=== PATIENT | female | born 1980 | race African-American/Black ===

== ENCOUNTER 2018-03-30 18:26 | Inpatient (IN) | payer MEDICARE, MEDICAID ==
--- NOTE | 2018-03-30 19:40 | ED Physician Chart ---
ED Chief Complaint/HPI - Patient Information Date Seen:: 03/30/18 Time Seen:: 19:39 Chief Complaint:: Headache and dizziness History of Present Illness:: 37 yo female was brought from [facility] to ER for evaluation of dizziness and headache for 2 days. Patient denied nausea or vomiting. In addition, patient stated that she had progressive multifocal leukoencephalopathy (PML) for 1 year which had caused a host of symptoms and signs including seizure, difficulty speaking, blindness, difficulty ambulating, unsteady gait, lack of balance and urinary incontinence. She is HIV positive. Allergies:: Allergies Allergy/AdvReac Type Severity Reaction Status Date / Time Penicillins [PCN] Allergy Verified 03/30/18 18:37 Sulfa (Sulfonamide Allergy Verified 03/30/18 18:37 Antibiotics) Vitals:: Vital Signs - 8 hr 03/30/18 18:38 Temp 97.6 F HR 84 RR 16 BP 113/79 O2 Sat % 98 ED Review of Systems - Review of Systems General/Constitutional: No fever Skin: No bruising Head: Headache Eyes: No pain ENT: No nasal drainage Neck: No neck pain Cardio Vascular: No chest pain Pulmonary: No SOB GI: No nausea, No vomiting G/U: Other (urinary incontinence ) Musculoskeletal: No bone or joint pain Neurological: Weakness, Dizziness, Other (unsteady gait) ED Past Medical History - Past Medical History Past Medical History: Other (Progressive multifocal leukoencephalopathy, HIV, HPV, anemia) Social History: Non Smoker, No Alcohol, No Drug Use Family Medical History - Family Member Mother History Unknown: Yes ED Physical Exam - Physical Examination General/Constitutional: Awake Head: Atraumatic Other Eyes comments:: blind Skin: No skin lesions ENMT: Nasal exam nl Neck: No nuchal rigidity Respiratory: No Wheeze/Rhonchi/Rales Cardio Vascular: RRR, No murmur, gallop, rubs, NL S1 S2 GI: No tenderness/rebounding/guarding Other Extremities comments:: Unsteady gait, difficulty ambulating Neuro/Psych: Alert/oriented Other Neuro/Psych comments:: Motor strength 4/5 BLE, 5/5 BUE ED Labs/Radiology/EKG Results - Lab Results Results: Laboratory Last Values WBC 4.3 Th/cmm (4.8-10.8) L 03/30/18 19:49 RBC 3.14 Mil/cmm (3.80-5.10) L 03/30/18 19:49 Hgb 11.0 gm/dL (12-16) L 03/30/18 19:49 Hct 33.9 % (41.0-60) L 03/30/18 19:49 MCV 108.0 fl (81-100) H 03/30/18 19:49 MCH 35.2 pg (27.0-31.0) H 03/30/18 19:49 MCHC Differential 32.6 pg (28.0-36.0) 03/30/18 19:49 RDW 12.0 % (11.5-20.0) 03/30/18 19:49 Plt Count 222 Th/cmm (150-400) 03/30/18 19:49 MPV 8.0 fl 03/30/18 19:49 Band Neutrophils % 0 % (0-10) 03/30/18 19:49 Neutrophils (Manual) 40 % (40-80) 03/30/18 19:49 Lymphocytes 52 % (20-50) H 03/30/18 19:49 Monocytes 5 % (2-10) 03/30/18 19:49 Eosinophils 3 % (0-5) 03/30/18 19:49 Basophils 0 % (0-3) 03/30/18 19:49 Sodium 137 mEq/L (136-145) 03/30/18 19:49 Potassium 3.8 mEq/L (3.5-5.1) 03/30/18 19:49 Chloride 105 mEq/L (98-107) 03/30/18 19:49 Carbon Dioxide 26.1 mEq/L (21.0-31.0) 03/30/18 19:49 Anion Gap 9.7 (7.0-16.0) 03/30/18 19:49 BUN 9 mg/dL (7-25) 03/30/18 19:49 Creatinine 0.8 mg/dL (0.6-1.2) 03/30/18 19:49 Est GFR ( Amer) > 60.0 ml/min (>90) 03/30/18 19:49 Est GFR (Non-Af Amer) > 60.0 ml/min 03/30/18 19:49 BUN/Creatinine Ratio 11.3 03/30/18 19:49 Glucose 81 mg/dL (70-105) 03/30/18 19:49 Calcium 9.5 mg/dL (8.6-10.3) 03/30/18 19:49 Total Bilirubin 0.3 mg/dL (0.3-1.0) 03/30/18 19:49 AST 21 U/L (13-39) 03/30/18 19:49 ALT 22 U/L (7-52) 03/30/18 19:49 Alkaline Phosphatase 58 U/L (34-104) 03/30/18 19:49 Total Protein 9.1 gm/dL (6.0-8.3) H 03/30/18 19:49 Albumin 4.1 gm/dL (3.7-5.3) 03/30/18 19:49 Globulin 5.0 gm/dL 03/30/18 19:49 Albumin/Globulin Ratio 0.8 (1.0-1.8) L 03/30/18 19:49 Serum , Qual NEGATIVE (NEGATIVE) 03/30/18 20:11 - Radiology Results Results: CT head without contrast: no acute abnormalities, severe cerebellar atrophy - EKG Interpretations EKG Time:: 22:52 Rate & Rhythm: 73 bmp, sinus rhythm [place]: normal P axis Intervals: normal ED Assessment - Assessment General Assessment: Dizziness Headache Leukopenia Macrocytic anemia HIV Assessment/Comments:: CBC, CMP, UA CXR, EKG CT head without contrast Admit to telemetry for further evaluation and management ED Septic Shock - . Is Septic Shock (SBP<90, OR Lactate>4 mmol\L) present?: No - <6hrs of presentation: Vital Signs: Vital Signs - 8 hr 03/30/18 18:38 Temp 97.6 F HR 84 RR 16 BP 113/79 O2 Sat % 98 ED Reassessment (Disposition) - Reassessment Reassessment Condition:: Unchanged - Patient Disposition Discharge/Transfer:: Acute Care w/in this hosp Admitting Medical Physician:: Jean Trejo ED Discharge Plan - Patient Disposition Admit/Discharge/Transfer: Acute Care w/in this hosp Condition at Disposition: Stable
[2018-03-30 20:07] LABS: HEMATOCRIT 33.9 % (41.0-60); MEAN CORPUSCULAR HEMOGLOBIN 35.2 pg (27.0-31.0); MEAN CORPUSCULAR HGB CONC 32.6 pg (28.0-36.0); PLATELET COUNT 222 Th/cmm (150-400); RED BLOOD COUNT 3.14 Mil/cmm (3.80-5.10); WHITE BLOOD COUNT 4.3 Th/cmm (4.8-10.8)
[2018-03-30 20:14] LABS: ALB/GLOB RATIO 0.8 (1.0-1.8); ALBUMIN 4.1 gm/dL (3.7-5.3); ALKALINE PHOSPHATASE 58 U/L (34-104); ANION GAP 9.7 (7.0-16.0); BILIRUBIN,TOTAL 0.3 mg/dL (0.3-1.0); BUN - UREA NITROGEN 9 mg/dL (7-25); CALCIUM SERUM 9.5 mg/dL (8.6-10.3); CARBON DIOXIDE 26.1 mEq/L (21.0-31.0); CHLORIDE 105 mEq/L (98-107); CREATININE - SERUM 0.8 mg/dL (0.6-1.2); GFR AFRICAN-AMERICAN > 60.0 ml/min (>90); GFR NON AFRICAN-AMERICAN > 60.0 ml/min; GLUCOSE 81 mg/dL (70-105); POTASSIUM SERUM 3.8 mEq/L (3.5-5.1); SGOT 21 U/L (13-39); SGPT/ALT 22 U/L (7-52); SODIUM SERUM 137 mEq/L (136-145); TOTAL PROTEIN,SERUM 9.1 gm/dL (6.0-8.3)
[2018-03-30 20:18] LABS: MANUAL DIFF REQUIRED? YES
[2018-03-30 20:32] LABS: BAND NEUTROPHILE 0 % (0-10); LYMPHOCYTE 52 % (20-50); MONOCYTE 5 % (2-10); NEUTROPHILS 40 % (40-80); TOTAL CELLS COUNTED 100
[2018-03-30 20:33] LABS: BASOPHIL 0 % (0-3); EOSINOPHIL 3 % (0-5)
[2018-03-31 00:35] LABS: URINE MICROSCOPIC INDICATED? YES; URINE SOURCE RANDOM
[2018-03-31 00:36] VITALS: BP 128/83
[2018-03-31 00:38] LABS: URINE BILIRUBIN NEGATIVE (NEGATIVE); URINE BLOOD NEGATIVE (NEGATIVE); URINE GLUCOSE (UA) NEGATIVE (NEGATIVE); URINE KETONE NEGATIVE (NEGATIVE); URINE LEUKOCYTE ESTERASE SMALL (NEGATIVE); URINE NITRATE NEGATIVE (NEGATIVE); URINE PROTEIN NEGATIVE (NEGATIVE); URINE UROBILINOGEN 0.2 E.U./dL (0.2 - 1.0)
[2018-03-31 00:50] LABS: URINE CLARITY HAZY (CLEAR); URINE COLOR YELLOW; URINE RBC 0-2 /hpf (0-5)
[2018-03-31 00:51] LABS: URINE BACTERIA MODERATE /hpf (NONE SEEN); URINE EPITHELIAL CELLS MODERATE /lpf (FEW)
[2018-03-31 00:54] LABS: AMPHETAMINE URINE NEGATIVE (NEGATIVE); BARBITURATES URINE NEGATIVE (NEGATIVE); BENZODIAZEPINES QUAL URINE NEGATIVE (NEGATIVE); CANNABINOID THC NEGATIVE (NEGATIVE); COCAINE METABOLITE QUAL URINE NEGATIVE (NEGATIVE); METHADONE URINE NEGATIVE (NEGATIVE); METHAMPHETAMINES QUAL URINE NEGATIVE (NEGATIVE); OPIATES (MORPHINE) QUAL. URINE NEGATIVE (NEGATIVE); PHENCYCLIDINE (PCP) URINE NEGATIVE (NEGATIVE); TRICYCLICS (TCA) QUAL. URINE NEGATIVE (NEGATIVE)
[2018-03-31 06:31] LABS: % BASOPHILS 0.3 % (0.0-2.0); % LYMPHOCYTES 54.9 % (20.0-50.0); % MONOCYTES 7.1 % (2.0-10.0); % NEUTROPHILS 32.7 % (40.0-80.0); EOSINOPHILE ABSOLUTE 0.2 Th/cmm (0.1-0.4); HEMATOCRIT 32.4 % (41.0-60); HEMOGLOBIN 10.8 gm/dL (12-16); MEAN CORPUSCULAR HEMOGLOBIN 36.3 pg (27.0-31.0); MEAN CORPUSCULAR HGB CONC 33.3 pg (28.0-36.0); MEAN PLATELET VOLUME 8.4 fl; MONOCYTE ABSOLUTE 0.3 Th/cmm (0.3-1.0); NEUTROPHILE ABSOLUTE 1.2 Th/cmm (1.8-8.0); PLATELET COUNT 203 Th/cmm (150-400); RED BLOOD COUNT 2.97 Mil/cmm (3.80-5.10); RED CELL DISTRIBUTION WIDTH 11.7 % (11.5-20.0)
[2018-03-31 06:35] LABS: WHITE BLOOD COUNT 3.7 Th/cmm (4.8-10.8)
[2018-03-31 06:45] LABS: ALB/GLOB RATIO 0.8 (1.0-1.8); ALBUMIN 3.8 gm/dL (3.7-5.3); ALKALINE PHOSPHATASE 52 U/L (34-104); ANION GAP 7.9 (7.0-16.0); BILIRUBIN,TOTAL 0.4 mg/dL (0.3-1.0); BUN - UREA NITROGEN 8 mg/dL (7-25); CALCIUM SERUM 9.6 mg/dL (8.6-10.3); CARBON DIOXIDE 26.5 mEq/L (21.0-31.0); CHLORIDE 105 mEq/L (98-107); CHOLESTEROL 168 mg/dL (<200); CREATININE - SERUM 0.8 mg/dL (0.6-1.2); GFR AFRICAN-AMERICAN > 60.0 ml/min (>90); GFR NON AFRICAN-AMERICAN > 60.0 ml/min; GLUCOSE 81 mg/dL (70-105); HDL -HIGH DENSITY LIPOPROTEIN 35 mg/dL (23-92); MAGNESIUM 2.1 mg/dL (1.9-2.7); POTASSIUM SERUM 3.4 mEq/L (3.5-5.1); SGOT 23 U/L (13-39); SGPT/ALT 22 U/L (7-52); SODIUM SERUM 136 mEq/L (136-145); TOTAL PROTEIN,SERUM 8.3 gm/dL (6.0-8.3); TRIGLYCERIDES 80 mg/dL (<150)
[2018-03-31 06:58] LABS: MEAN CELL VOLUME 108.9 fl (81-100)
--- NOTE | 2018-03-31 08:05 | Diagnostic Imaging Report ---
CHEST X-RAY: AP view INDICATION: Shortness of breath COMPARISON: None FINDINGS: There is no focal consolidation or pleural effusions The heart is normal in size. The osseous structures demonstrate no acute abnormalities. There are bilateral nipple shadows IMPRESSION: No acute cardiopulmonary disease. Bilateral nipple shadows. Please perform follow up exams with nipple markers.
--- NOTE | 2018-03-31 08:07 | Diagnostic Imaging Report ---
Head CT without intravenous contrast Indication: Headache Comparison: None Technique: Axial images were obtained from the vertex to the skull base without IV contrast. Coronal reconstructions were made. Total DLP: 552, CTDI29.5 FINDINGS: Images of the brain obtained without contrast demonstrate no acute hemorrhage. No mass lesions identified. The ventricles and basal cisterns are patent. There is severe bilateral cerebellar atrophy.. There is no mass effect or midline shift. No skull fractures identified. No soft tissue swelling. The paranasal sinuses are clear. IMPRESSION: No evidence of acute intracranial hemorrhage. Severe bilateral cerebellar atrophy and possible old bilateral cerebellar infarcts. Please correlate with patient's clinical history.
[2018-03-31] MEDS ORDERED: Maalox 30 mL Cup PO PRN (22:21)
[2018-03-31] MEDS ORDERED: Magnesium Hydroxide (MOM) 30 mL UDC PO PRN (22:21)
[2018-03-31] MEDS ORDERED: Hydrocodone/APAP 10 mg/325 mg Tab PO PRN (22:21)
[2018-03-31] MEDS ORDERED: Potassium Chloride 20 mEq ER Tab PO ONE (22:49)
[2018-03-31] MEDS: Levofloxacin 750mg/150mL 750 MG/150 ML BAG IV SCH (23:09)
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
--- NOTE | 2018-04-01 04:07 | Progress Notes ---
DATE: 03/31/2018 SUBJECTIVE: The patient still complains of headache and dizziness. OBJECTIVE: VITAL SIGNS: Basically stable. HEENT: Normocephalic, atraumatic. Pupils equal, round, react to light to accommodation. CHEST: Symmetrical. LUNGS: Clear to auscultation bilaterally. CARDIAC: Normal sinus rhythm, S1 and S2. ABDOMEN: Benign, soft, nontender. EXTREMITIES: No clubbing, cyanosis . NEUROLOGIC: Unremarkable. LABORATORY DATA: Revealed significant for further decreasing white count, WBC 3700 down from 4200 yesterday and hypokalemia, potassium 3.4. ASSESSMENT AND PLAN: 1. Hypokalemia: Supplement with 20 mEq KCl p.o. x 1. 2. Leukopenia worsening: We will repeat CBC in the morning. 3. Urinary tract infection: Urine culture ordered. Blood culture also ordered. Empiric antibiotics started, which will be adjusted accordingly. 4. Dizziness: Unclear etiology. I have ordered duplex ultrasound. May need Neurology consultation. 5. Headache: Unclear etiology which may be part of the chronic pain syndrome. 6. Chronic pain syndrome: Adjust medications as needed. 7. DVT prophylaxis. JOB# [id number]
[2018-04-01 06:23] LABS: % BASOPHILS 0.2 % (0.0-2.0); % LYMPHOCYTES 44.2 % (20.0-50.0); % MONOCYTES 7.5 % (2.0-10.0); % NEUTROPHILS 44.1 % (40.0-80.0); EOSINOPHILE ABSOLUTE 0.2 Th/cmm (0.1-0.4); HEMATOCRIT 33.9 % (41.0-60); HEMOGLOBIN 11.1 gm/dL (12-16); LYMPHOCYTE ABSOLUTE 2.1 Th/cmm (1.5-3.0); MEAN CORPUSCULAR HEMOGLOBIN 35.4 pg (27.0-31.0); MEAN CORPUSCULAR HGB CONC 32.7 pg (28.0-36.0); MEAN PLATELET VOLUME 8.4 fl; MONOCYTE ABSOLUTE 0.3 Th/cmm (0.3-1.0); PLATELET COUNT 219 Th/cmm (150-400); RED BLOOD COUNT 3.13 Mil/cmm (3.80-5.10); RED CELL DISTRIBUTION WIDTH 11.9 % (11.5-20.0)
[2018-04-01 06:25] LABS: BUN - UREA NITROGEN 9 mg/dL (7-25); CALCIUM SERUM 9.9 mg/dL (8.6-10.3); CARBON DIOXIDE 22.3 mEq/L (21.0-31.0); CHLORIDE 105 mEq/L (98-107); CREATININE - SERUM 0.8 mg/dL (0.6-1.2); GFR AFRICAN-AMERICAN > 60.0 ml/min (>90); GFR NON AFRICAN-AMERICAN > 60.0 ml/min; GLUCOSE 86 mg/dL (70-105); POTASSIUM SERUM 3.3 mEq/L (3.5-5.1); SODIUM SERUM 135 mEq/L (136-145)
[2018-04-01 06:26] LABS: MEAN CELL VOLUME 108.2 fl (81-100); WHITE BLOOD COUNT 4.6 Th/cmm (4.8-10.8)
[2018-04-01] MEDS: Calcium Carb/Vit D 500 mg/200 U Tab PO SCH (08:36)
[2018-04-01] MEDS: Pantoprazole 40 mg EC Tab PO SCH (08:36)
[2018-04-01] MEDS: Multivitamin w/ Minerals Tab PO SCH (08:37)
[2018-04-01] MEDS ORDERED: CRANBERRY FRUIT PO SCH (09:00)
[2018-04-01] MEDS ORDERED: Non-Formulary Item 1 EA (Amino Acids/Protein Hydrolys [Pro-Stat Max Liquid] 30 ML) PO SCH (09:00)
[2018-04-01] MEDS ORDERED: Potassium Chloride 20 mEq ER Tab PO ONE (10:47)
--- NOTE | 2018-04-01 10:56 | Diagnostic Imaging Report ---
Carotid ultrasound HISTORY: Dizziness COMPARISON: None Technique: Longitudinal and transverse sonographic sector images of the carotid arteries were obtained with doppler analysis. FINDINGS: Exam of the right side demonstrates intimal thickening and mild atherosclerotic vascular disease. The velocity and velocity ratios are within normal limits. Exam of the left side demonstrates intimal thickening and mild atherosclerotic vascular disease. There is elevated velocity of the left proximal CCA 159 cm/second. The velocity ratios are within normal limits. Antegrade vertebral artery flow is demonstrated bilaterally. IMPRESSION: Mild increased velocity of the left CCA, probably related to technical factors. Mild generalized atherosclerosis is noted. No evidence of hemodynamically significant stenosis.
[2018-04-01] MEDS: RITONAVIR 100 MG PO SCH (11:14)
[2018-04-01] MEDS: TENOFOVIR PO SCH (11:14)
[2018-04-01] MEDS: DARUNAVIR 600 MG PO SCH (11:14)
[2018-04-01] MEDS: EMTRICITABINE PO SCH (11:14)
[2018-04-01] MEDS: Levofloxacin 750mg/150mL 750 MG/150 ML BAG IV SCH (23:33)
[2018-04-02 05:54] LABS: % BASOPHILS 1.1 % (0.0-2.0); % EOSINOPHILS 5.3 % (0.0-5.0); % LYMPHOCYTES 52.3 % (20.0-50.0); % MONOCYTES 8.1 % (2.0-10.0); % NEUTROPHILS 33.2 % (40.0-80.0); EOSINOPHILE ABSOLUTE 0.2 Th/cmm (0.1-0.4); HEMATOCRIT 33.7 % (41.0-60); HEMOGLOBIN 11.2 gm/dL (12-16); LYMPHOCYTE ABSOLUTE 1.8 Th/cmm (1.5-3.0); MEAN CORPUSCULAR HEMOGLOBIN 35.6 pg (27.0-31.0); MEAN CORPUSCULAR HGB CONC 33.1 pg (28.0-36.0); MEAN PLATELET VOLUME 8.4 fl; MONOCYTE ABSOLUTE 0.3 Th/cmm (0.3-1.0); NEUTROPHILE ABSOLUTE 1.2 Th/cmm (1.8-8.0); PLATELET COUNT 206 Th/cmm (150-400); RED BLOOD COUNT 3.13 Mil/cmm (3.80-5.10); RED CELL DISTRIBUTION WIDTH 11.8 % (11.5-20.0)
[2018-04-02 05:57] LABS: BUN - UREA NITROGEN 11 mg/dL (7-25); CALCIUM SERUM 9.7 mg/dL (8.6-10.3); CARBON DIOXIDE 24.3 mEq/L (21.0-31.0); CHLORIDE 104 mEq/L (98-107); CREATININE - SERUM 0.9 mg/dL (0.6-1.2); GFR AFRICAN-AMERICAN > 60.0 ml/min (>90); GFR NON AFRICAN-AMERICAN > 60.0 ml/min; GLUCOSE 88 mg/dL (70-105); POTASSIUM SERUM 4.3 mEq/L (3.5-5.1); SODIUM SERUM 133 mEq/L (136-145)
[2018-04-02 06:02] LABS: WHITE BLOOD COUNT 3.5 Th/cmm (4.8-10.8)
[2018-04-02 06:03] LABS: MEAN CELL VOLUME 107.7 fl (81-100)
[2018-04-02] MEDS: Pantoprazole 40 mg EC Tab PO SCH (08:21)
[2018-04-02] MEDS: RITONAVIR 100 MG PO SCH (08:22)
[2018-04-02] MEDS: Multivitamin w/ Minerals Tab PO SCH (08:22)
[2018-04-02] MEDS: Calcium Carb/Vit D 500 mg/200 U Tab PO SCH (08:22)
[2018-04-02] MEDS: EMTRICITABINE PO SCH (08:23)
[2018-04-02] MEDS: TENOFOVIR PO SCH (08:23)
[2018-04-02] MEDS: DARUNAVIR 600 MG PO SCH (08:23)
--- NOTE | 2018-04-02 20:36 | Progress Notes ---
DATE: 04/01/2018 SUBJECTIVE: The patient still complains of headache, dizziness, but appears to be improving. OBJECTIVE: VITAL SIGNS: Mild febrile from time to time with tachycardia accordingly. HEENT: Normocephalic, atraumatic. Pupils equal, round, react to light and accommodation. CHEST: Symmetrical. LUNGS: Basically clear to auscultation bilaterally. CARDIAC: Tachycardia on and off. ABDOMEN: Benign, soft, nontender. EXTREMITIES: No clubbing, cyanosis, edema bilaterally, 2+ equally. NEUROLOGICAL: Unremarkable. LABORATORY DATA: Lab reviewed, significant for persistent of hypokalemia despite supplement. Potassium is 3.3 today. The patient's TSH is 2.31. ASSESSMENT AND PLAN: 1. Mild fever: Observe for now. Unclear etiology, but blood culture ordered, pending final result. 2. Tachycardia: Probably due to fever. 3. Hypokalemia: Supplemented. 4. Dizziness and headache: Unclear etiology, but may be related to the patient's history of progressive multifocal leukoencephalopathy (PML): The patient does have chronic pain syndrome. 5. Chronic pain syndrome: Adjust medications as needed. 6. Depression and anxiety. 7. History of human immunodeficiency virus. 8. Deep venous thrombosis prophylaxis. 9. Discharge planning communicated with vocational case manager today. JOB# [id number]
[2018-04-02] MEDS: Levofloxacin 750mg/150mL 750 MG/150 ML BAG IV SCH (23:41)
[2018-04-03 05:33] LABS: % BASOPHILS 1.3 % (0.0-2.0); BASOPHILE ABSOLUTE 0.1 Th/cumm (0-0.2); EOSINOPHILE ABSOLUTE 0.2 Th/cmm (0.1-0.4); RED CELL DISTRIBUTION WIDTH 11.8 % (11.5-20.0)
[2018-04-03 05:43] LABS: % EOSINOPHILS 5.8 % (0.0-5.0); % LYMPHOCYTES 51.3 % (20.0-50.0); % MONOCYTES 8.7 % (2.0-10.0); % NEUTROPHILS 32.9 % (40.0-80.0); HEMATOCRIT 32.6 % (41.0-60); LYMPHOCYTE ABSOLUTE 2.1 Th/cmm (1.5-3.0); MEAN CORPUSCULAR HEMOGLOBIN 36.2 pg (27.0-31.0); MEAN CORPUSCULAR HGB CONC 33.8 pg (28.0-36.0); MEAN PLATELET VOLUME 8.2 fl; MONOCYTE ABSOLUTE 0.4 Th/cmm (0.3-1.0); NEUTROPHILE ABSOLUTE 1.3 Th/cmm (1.8-8.0); PLATELET COUNT 212 Th/cmm (150-400); RED BLOOD COUNT 3.05 Mil/cmm (3.80-5.10); WHITE BLOOD COUNT 4.1 Th/cmm (4.8-10.8)
[2018-04-03 06:03] LABS: ANION GAP 10.2 (7.0-16.0); BUN - UREA NITROGEN 10 mg/dL (7-25); CALCIUM SERUM 9.4 mg/dL (8.6-10.3); CARBON DIOXIDE 23.6 mEq/L (21.0-31.0); CHLORIDE 105 mEq/L (98-107); CREATININE - SERUM 0.7 mg/dL (0.6-1.2); GFR AFRICAN-AMERICAN > 60.0 ml/min (>90); GFR NON AFRICAN-AMERICAN > 60.0 ml/min; GLUCOSE 82 mg/dL (70-105); POTASSIUM SERUM 3.8 mEq/L (3.5-5.1); SODIUM SERUM 135 mEq/L (136-145)
[2018-04-03] MEDS: Pantoprazole 40 mg EC Tab PO SCH (08:49)
[2018-04-03] MEDS: Multivitamin w/ Minerals Tab PO SCH (08:50)
[2018-04-03] MEDS: Calcium Carb/Vit D 500 mg/200 U Tab PO SCH (08:50)
[2018-04-03] MEDS: EMTRICITABINE PO SCH (08:52)
[2018-04-03] MEDS: TENOFOVIR PO SCH (08:52)
[2018-04-03] MEDS: RITONAVIR 100 MG PO SCH (08:52)
[2018-04-03] MEDS: DARUNAVIR 800 MG PO SCH (08:52)
[2018-04-03] MEDS: TIVICAY 50 MG PO SCH (10:47)
--- NOTE | 2018-04-03 16:55 | Progress Notes ---
DATE: 04/02/2018 SUBJECTIVE: The patient is afebrile. OBJECTIVE: VITAL SIGNS: Basically stable except for tachycardia on and off. HEENT: Normocephalic, atraumatic. Pupils equal, round, reactive to light and accommodation. CHEST: Symmetrical. LUNGS: Few wheezing appreciated. HEART: Tachycardia on and off. ABDOMEN: Benign, soft, nontender. EXTREMITIES: No clubbing, cyanosis or edema, bilateral 2+ . NEUROLOGIC: Unremarkable. LABORATORY DATA: Revealed significant for leukopenia with white count 3500 down from 4600 yesterday. Hypokalemia, corrected; however, sodium decreased to 133. ASSESSMENT AND PLAN: 1. Leukopenia: This is significant drop compared to yesterday and I have held the discharge and a repeat CBC in the morning. 2. Mild fever on and off. Observe for now. 3. Tachycardia, multifactorial, observe closely. 4. Hyponatremia: Probably somehow related to psychotropic medications. We will repeat BMP in the morning. 5. Hypokalemia, supplemented. 6. Dizziness and headache slightly improving. 7. Chronic pain syndrome. 8. HIV: Continue medication. 9. DVT prophylaxis. 10. Depression, anxiety, stabilizing. 11. Discharge planning. JOB# [id number]
[2018-04-03] MEDS: Levofloxacin 750mg/150mL 750 MG/150 ML BAG IV SCH (23:05)
--- NOTE | 2018-04-04 05:05 | Progress Notes ---
DATE: 04/03/2018 SUBJECTIVELY: The patient is more confused, still complains of headache and dizziness, but does appear to be improving. OBJECTIVE: VITAL SIGNS: Basically stable. HEENT: Normocephalic, atraumatic. Pupils equal, round, react to light and accommodation. CHEST: Symmetrical. LUNGS: Basically clear to auscultation bilaterally. CARDIAC: Normal sinus rhythm. S1, S2. ABDOMEN: Benign, soft, nontender. EXTREMITIES: No clubbing, cyanosis, edema. NEUROLOGIC: Unremarkable. LABORATORY DATA: Reviewed. WBC 4100, which is up from 3500 yesterday. Sodium 135, up from 133 yesterday. ASSESSMENT AND PLAN: 1. Dizziness and headache: Unclear etiology, but probably due to her history of PMI (progressive multifocal leukoencephalopathy). The patient refused Neurology consultation. She says she already has one as outpatient. 2. Human immunodeficiency virus: Continue medication. 3. Chronic pain syndrome: Multifactorial adjust medication as needed. 4. Urinary tract infection, improving. 5. Deep vein thrombosis prophylaxis. 6. Discharge planning for tomorrow. JOB# [id number]
[2018-04-04] MEDS: EMTRICITABINE PO SCH (09:12)
[2018-04-04] MEDS: TENOFOVIR PO SCH (09:12)
[2018-04-04] MEDS: DARUNAVIR 800 MG PO SCH (09:12)
[2018-04-04] MEDS: RITONAVIR 100 MG PO SCH (09:12)
[2018-04-04] MEDS: TIVICAY 50 MG PO SCH (09:12)
[2018-04-04] MEDS: Pantoprazole 40 mg EC Tab PO SCH (09:13)
[2018-04-04] MEDS: Multivitamin w/ Minerals Tab PO SCH (09:13)
[2018-04-04] MEDS: Calcium Carb/Vit D 500 mg/200 U Tab PO SCH (09:13)
[2018-04-04] MEDS: Levofloxacin 750mg/150mL 750 MG/150 ML BAG IV SCH (23:42)
[2018-04-05 05:08] LABS: HEMATOCRIT 32.3 % (41.0-60); HEMOGLOBIN 10.7 gm/dL (12-16); MEAN CORPUSCULAR HEMOGLOBIN 35.5 pg (27.0-31.0); MEAN CORPUSCULAR HGB CONC 33.2 pg (28.0-36.0); MEAN PLATELET VOLUME 7.9 fl; PLATELET COUNT 205 Th/cmm (150-400); RED BLOOD COUNT 3.03 Mil/cmm (3.80-5.10); RED CELL DISTRIBUTION WIDTH 11.9 % (11.5-20.0)
[2018-04-05 05:12] LABS: MANUAL DIFF REQUIRED? YES; MEAN CELL VOLUME 106.8 fl (81-100); WHITE BLOOD COUNT 3.8 Th/cmm (4.8-10.8)
--- NOTE | 2018-04-05 05:34 | Progress Notes ---
DATE: 04/04/2018 SUBJECTIVE: The patient is lethargic, complaining of pain. OBJECTIVE: VITAL SIGNS: Basically stable. HEENT: Normocephalic, atraumatic. Pupils are equal, round, and reactive to light and accommodation. CHEST: Symmetrical. LUNGS: Basically clear to auscultation bilaterally. CARDIAC: Tachycardia on and off. ABDOMEN: Benign, soft, nontender. EXTREMITIES: No clubbing, cyanosis, edema bilaterally ____. NEUROLOGIC: Unremarkable. LABORATORY DATA: Seen from the computer. ASSESSMENT AND PLAN: 1. Chronic pain syndrome: Multifactorial, which is medication as needed. 2. Dizziness and headache, improving. 3. HIV: Continue medication. 4. Urinary tract infection, improving. 5. DVT prophylaxis. 6. Discharge planning. 7. History of PML (progressive multifocal leukoencephalopathy). The patient said that she has her neurologist follow up on this condition ____ any neurologic consultation. JOB# [id number]
[2018-04-05 05:40] LABS: ANION GAP 7.5 (7.0-16.0); BUN - UREA NITROGEN 9 mg/dL (7-25); CALCIUM SERUM 9.5 mg/dL (8.6-10.3); CARBON DIOXIDE 27.3 mEq/L (21.0-31.0); CHLORIDE 105 mEq/L (98-107); CREATININE - SERUM 0.9 mg/dL (0.6-1.2); GFR AFRICAN-AMERICAN > 60.0 ml/min (>90); GFR NON AFRICAN-AMERICAN > 60.0 ml/min; GLUCOSE 84 mg/dL (70-105); POTASSIUM SERUM 3.8 mEq/L (3.5-5.1); SODIUM SERUM 136 mEq/L (136-145)
[2018-04-05 06:27] LABS: EOSINOPHIL 7 % (0-5); LYMPHOCYTE 55 % (20-50); MONOCYTE 3 % (2-10); NEUTROPHILS 35 % (40-80); TOTAL CELLS COUNTED 100
[2018-04-05] MEDS: Calcium Carb/Vit D 500 mg/200 U Tab PO SCH (08:58)
[2018-04-05] MEDS: TIVICAY 50 MG PO SCH (09:00)
[2018-04-05] MEDS: DARUNAVIR 800 MG PO SCH (09:00)
[2018-04-05] MEDS: TENOFOVIR PO SCH (09:00)
[2018-04-05] MEDS: EMTRICITABINE PO SCH (09:00)
[2018-04-05] MEDS: RITONAVIR 100 MG PO SCH (09:00)
[2018-04-05] MEDS: Multivitamin w/ Minerals Tab PO SCH (09:01)
[2018-04-05] MEDS: Pantoprazole 40 mg EC Tab PO SCH (09:02)
[2018-04-06 15:02] LABS: MEAN CELL VOLUME 106.9 fl (81-100)
--- NOTE | 2018-04-06 22:13 | Discharge Summary ---
DATE OF DISCHARGE: 04/05/2018 FINAL DIAGNOSES: 1. Severe headache and dizziness, improved. 2. Chronic pain syndrome, stabilized. 3. HIV, stable. 4. Urinary tract infection, status post treatment. 5. History of progressive multifocal leukoencephalopathy, PML. 6. Leukopenia, resolved. 7. Depression, anxiety, stabilized. HOSPITAL COURSE: The patient is a 37-year-old -Iranian female admitted due to severe headache and dizziness, but workup was unremarkable. But the patient continued to feel headache and dizziness for a few days, but improved. Her initial leukopenia on admission stabilized or not worsened. Her hyponatremia also improved. The patient does have chronic pain syndrome, which stabilized. The patient was accepted back to senior living. DISCHARGE CONDITION: Stable. 1 DISPOSITION: [facility]. DISCHARGE MEDICATIONS: Continue medication from here. DIET: Cardiac, soft diet. ACTIVITY: Bed rest with physical therapy. FOLLOWUP: One week. JOB# [id number]
== END 2018-04-05 20:10 | DRG 640 ==
LOC: ER 18:26 → TELE 22:45
PROVIDERS: ADMIT Internal Medicine; ATTEND Internal Medicine
DX: E87.1 Hypo-osmolality and hyponatremia (principal); G93.49 Other encephalopathy; N39.0 Urinary tract infection, site not specified; R51 Headache; R42 Dizziness and giddiness; G89.4 Chronic pain syndrome; F32.9 Major depressive disorder, single episode, unspecified; D72.819 Decreased white blood cell count, unspecified; F41.9 Anxiety disorder, unspecified; D53.9 Nutritional anemia, unspecified; E87.6 Hypokalemia; R50.9 Fever, unspecified; R00.0 Tachycardia, unspecified; Z86.61 Personal history of infections of the central nervous system; Z86.69 Personal history of other diseases of the nervous system and sense organs; Z88.0 Allergy status to penicillin; Z88.2 Allergy status to sulfonamides
CPT/HCPCS: 36415-UA; 70450-TC; 71045-TC; 80048-TC; 80053-TC; 80061-TC; 80307; 81001-TC; 83735-TC; 83880-TC; 84443-TC; 84703-TC; 85007-TC; 85025-TC; 85027-TC; 87086-90; 93005; 93880-TC; J1956; J7040; Z7610